=== PATIENT | female | born 1960 | race Caucasian/White ===

== ENCOUNTER 2017-11-27 10:33 | Emergency (ER) | payer OTHER ==
[~2017-11-27] VITALS: Ht 170.2 cm; Wt 70.8 kg
--- OUTSIDE RECORDS SUMMARY | 2017-11-27 10:35 | XMS REPORT ---
Author Author [facility] Address Unknown Phone Unavailable Care Team Providers Care Process Mold Technician Name Role Phone PADMINI PEREZ Unavailable Unavailable Problems This patient has no known problems. Allergies, Adverse Reactions, Alerts This patient has no known allergies or adverse reactions. Medications This patient has no known medications. Results Test Description Test Time Test Comments Text Results Atomic Results Result Comments MAMMOGRAPHY DIGITAL SCR BILAT [place] [address] Patient Name: JOSHUA SANTOYO MR #: [id number] : 1960 Age/Sex: 57/F Req #: [id number] [facility] Physician: Ordered by: PADMINI PEREZ MD Report #: [id number] Location: MAMMO Room/Bed: Procedure: [id number] MG/MAMMOGRAPHY DIGITAL SCR BILAT Exam Date: 10/23 Exam Time: 1500 REPORT STATUS: Signed #[id number] - [id number] #BILATERAL DIGITAL SCREENING MAMMOGRAM WITH CAD : 08/07/2017 CLINICAL: Routine screening. No prior exams were available for comparison. Current study contains 4 films. There are scattered fibroglandular elements in both breasts. Current study was also evaluated with a Computer Aided Detection (CAD) system. There are benign calcifications in both breasts. There also are post operative findings in the left breast with a scar marker present. There are mole markers on the left breast. No significant masses, calcifications, or other findings are seen in either breast. IMPRESSION: BENIGN There is no mammographic evidence of malignancy. A 1 year screening mammogram is recommended. The patient will be notified by letter of the results. Bolivar Iyer Jr., D.O. cw/:08/10/2017 13:17:22 Physician Practice Consultant: Evelyn CASTRO )([place]), [facility] letter sent: Normal Exam Mammogram BI-RADS: 2 Benign Dictated By: BOLIVAR IYER DO 1317 Transcribed By: BERTIN on 1317 COPY TO: PADMINI PEREZ MD
[2017-11-27 11:56] VITALS: BP 142/84
== END 2017-11-27 11:40 | disposition home or self-care (01) ==
LOC: FSED 10:33
DX: R51 Headache (principal); M62.838 Other muscle spasm; R03.0 Elevated blood-pressure reading, without diagnosis of hypertension; R20.8 Other disturbances of skin sensation; E78.5 Hyperlipidemia, unspecified
CPT/HCPCS: 99282